=== PATIENT | female | born 1950 | race Caucasian/White ===

== ENCOUNTER → 2018-06-03 | Outpatient (CLI) | payer MEDICARE ==
[~2018-06-03] MED LIST: ACET-1757 PO; AMLO10TA6 PO; AMLO5TAB4; ASPI-515; CIPR750T PO; FENO145T32 PO; GEMF600T4; GLIP-142; GLIP-142 PO; HYDR25TA6; HYDR25TA6 PO; IBUP-1223 PO; INSU100V13 SQ-INSULIN; INSU100V8; INSU100V8 SQ; LISI40TA; LISI40TA PO; METF850T; METH750T87 PO; METO25TA91; METO5TAB2 PO; NIAC500C3; OMEP20CA9; OXYB5TAB7 PO; PRAV80TA2 PO; RANI150C PO; REGADENOSON 0.4 MG/5 ML SYRINGE ONE; TRAM50TA2 PO
== END | disposition home or self-care (01) ==
LOC: CFH 06:52
PROVIDERS: ATTEND Internal Medicine Cardiovascular Disease
DX: I34.0 Nonrheumatic mitral (valve) insufficiency (principal); I10 Essential (primary) hypertension; E78.5 Hyperlipidemia, unspecified; E11.9 Type 2 diabetes mellitus without complications; Z87.891 Personal history of nicotine dependence
CPT/HCPCS: 78452; 93017; 93306; A9502; J2785